=== PATIENT | female | born 1940 | race Caucasian/White ===

== ENCOUNTER 2016-07-21 12:48 | Emergency (ER) | payer MEDICARE, OTHER ==
[~2016-07-21] VITALS: Ht 165.1 cm; Wt 77.7 kg
[2016-07-21 12:49] VITALS: BP 121/72; PULSE 117; RESP 18; O2SAT 95
--- NOTE | 2016-07-21 12:55 | ED.REPORT ---
HPI-General Illness Date of Service July 21, 2016 ED Provider: Stewart Howard MD The patient is a 76 year old female w/ a hx of HTN who presents to the ED accompanied by her sent from Urgent Care due to possible pneumonia. On Saturday at 1000, she began to get chills and a fever of 101.7F. She took some Aspirin. Associated symptoms include headache, nausea and a very slight cough. She denies photosensitivity, vomiting, sore throat, abdominal pain, and dysuria. On the way to the ED today, while in the parking lot walking to the car from Urgent Care, her reports that the pt had a short syncopal episode. The pt went completely white, was caught by her , crumpled to the ground and lost consciousness for about 10 seconds. The pt remembers the episode. She is alert and awake at the ED and states she is extremely thirsty. Nursing Notes Stated Complaint: HEADACHE/SENT FROM Chief Complaint: General Complaint Nursing Notes Reviewed: Yes Allergies: Coded Allergies: No Known Allergies (Unverified , 07/21/16) Scheduled Azithromycin (Zithromax (Z-Anish)) 250 Mg Tablet 250 MG PO DIRECTED Take two tablets by mouth on day 1, then take one tablet daily on days 2 through 5. General Time Seen by MD: 12:53 Chief Complaint Fever Hx Obtained From: Patient Arrived By: Walk-in Sudden in Onset?: Yes Onset Occurred: 3 days ago Symptom Duration: Since onset Severity: Current: No pain currently Associated with: Reports: Cough, Headache, Nausea Recent Healthcare: Recent doctor visit Similar Sx Previous: Yes Past Medical History Past Medical History HTN Past Surgical History rotator cuff surgery Smoking History Unknown if Ever Smoker Social History Other Social History: Good social support, , Local resident Ambulatory Status Independent Review of Systems Full Review of Systems Constitutional: Reports: Chills, Fever Eyes: Denies: Photophobia Ears / Nose / Throat: Denies: Sore throat Respiratory: Reports: Prod cough, clear GI: Reports: Nausea, Denies: Abdominal pain, Vomiting Female: Denies: Dysuria Neurologic: Reports: Headache Complete sys rev & neg: except as marked. Physical Exam Vital Signs Vital Signs Date Time Temp Pulse Resp B/P Pulse Ox O2 Delivery O2 Flow Rate FiO2 07/21/16 14:47 39.3 100 16 131/59 95 Room Air 07/21/16 14:45 39.3 100 16 131/59 95 Room Air 07/21/16 13:58 39.5 104 13 134/68 93 Room Air 07/21/16 13:25 39.5 106 12 97/65 94 Room Air 07/21/16 12:49 38.5 117 18 121/72 95 Room Air Initial VS: Reviewed Cardiovascular: Regular rate & rhythm, Heart sounds normal, Intact distal pulses Abdomen / GI: Soft, Non-tender, No guarding, No rebound, No distention Back: No CVA tenderness Extremities: Vascular intact, Neuro intact, No swelling, No tenderness Skin: Warm, Dry General/Constitutional: Awake, Alert, Cooperative Head / Eyes: Normocephalic, PERRL, EOMI Neck: Atraumatic, Supple, No meningismus negative brudzinski sign negative kernigs sign Respiratory / Chest: No rhonchi, No wheezing, No retractions faint crackles left base Interpretation & Diagnostics Lab Results Interpretation Result Diagram: 07/21/16 1318 07/21/16 1318 Test 07/21/16 13:18 07/21/16 13:19 White Blood Count 7.9th/mm3 (3.8-10.1) Red Blood Count 4.21mil/mm3 (3.90-5.20) Hemoglobin 13.9g/dL (12.0-15.6) Hematocrit 40.6% (35.0-46.0) Mean Corpuscular Volume 96.4fL (81-100) Mean Corpuscular Hemoglobin 33.0pg (27.0-35.0) Mean Corpuscular Hemoglobin Concent 34.2% (32.0-37.0) Red Cell Distribution Width 12.9% (12.3-15.4) Platelet Count 196bil/L (150-400) Neutrophils (%) (Auto) 88.6% (40-74) Lymphocytes (%) (Auto) 4.9% (14-46) Monocytes (%) (Auto) 5.3% (4-12) Eosinophils (%) (Auto) 0.1% (0-5) Basophils (%) (Auto) 0.6% (0-3) Sodium Level 134mEq/L (134-144) Potassium Level 3.5mEq/L (3.5-5.2) Chloride Level 94mEq/L (97-108) Carbon Dioxide Level 23mmol/L (18-29) Blood Urea Nitrogen 15mg/dL (8-27) Creatinine 0.92mg/dL (0.57-1.00) Estimat Glomerular Filtration Rate 85mL/min (>59) Glucose Level 150mg/dL (60-99) Calcium Level 8.7mg/dL (8.5-10.1) Total Bilirubin 0.8mg/dL (0.0-1.2) Aspartate Amino Transf (AST/SGOT) 36U/L (0-50) Alanine Aminotransferase (ALT/SGPT) 27U/L (0-32) Alkaline Phosphatase 128U/L (25-165) Troponin T < 0.010ug/L (0.0-0.011) Total Protein 6.6g/dL (6.4-8.4) Albumin 3.5g/dL (3.4-5.0) Hold Riggs Top Tube Received (Received) ECG Interpretation ECG Interpretation: Q-wave inversions isolated to V1 no ST changes Time: 13:20 Interpreted by: ED physician Rhythm / Conduction: Tachycardia (rate 106) X-Ray Chest Interpretation Chest Xray Interpretation: IMPRESSION: Minimal left costophrenic angle blunting, suggestive of fluid. Dictated by: Nika Benavides M.D. on 07/21/2016 at 14:12 Approved by: Nika Benavides M.D. on 07/21/2016 at 14:12 View: Portable Interpretation / Wet Read by: Interpret - Radiologist Re-Eval/Medical Decision Med Decision/Clinical Course 76-year-old female otherwise healthy presenting with fever and cough. X-ray with questionable left lower lobe pneumonia. Her oxygen is mid 90s. Her labs are unremarkable. She did have a near syncopal event in the parking lot. She feels much better after IV fluids. Her vital signs are stable. Her troponins are negative. Her labs are unremarkable. Will be discharged home with return precautions. Counseled Regarding: Diagnosis, Lab results, Need for follow-up, When/why to return to ED Discharge & Departure Primary Impression: Pneumonia Pneumonia type: due to unspecified organism Laterality: unspecified laterality Lung location: unspecified part of lung Qualified Code: J18.9 - Pneumonia, unspecified organism Disposition: Home Discharge Condition All VS Reviewed: Yes Condition: Stable Additional Instructions: All of your x-rays and lab work were normal. There was a small amount of fluid in the base of your lung which could be indicative of early pneumonia. I am sending you home with an antibiotic for 5 days. Take Tylenol and Ibuprofen as needed for pain. Stay well hydrated, drink plenty of fluids, and get lots of rest. Follow up with your primary care physician on Saturday. Return to the Emergency Department for any new or worsening symptoms including loss of consciousness, chest pain, high fever, increased neck/back pain, confusion and difficulty breathing. I hope you feel better soon, enjoy the sunshine! Referrals: Alka Thomas MD (PCP) Scribe Attestation Portion of this note were transcribed by Darya Richey. I, Dr. Howard, personally performed the history, physical exam, and medical decision-making: I reviewed and confirmed the accuracy for the information in the transcribed note. Signed by: khoa Garcia, 07/21/16 1500 copies to: Alka Thomas MD, Ben M MD July 21, 2016 12:55 Darya Richey July 21, 2016 13:04
[2016-07-21] MEDS ORDERED: 0.9% Sodium Chloride 1,000 ML IV ONE (13:03)
[2016-07-21 13:22] LABS: BASOPHILS % (AUTO) 0.6 % (0-3); EOSINOPHILS % (AUTO) 0.1 % (0-5); MONOCYTES % (AUTO) 5.3 % (4-12); Mean Corpuscular Volume 96.4 fL (81-100); NEUTROPHILS % (AUTO) 88.6 % (40-74); Platelet Count 196 bil/L (150-400)
[2016-07-21 13:25] VITALS: BP 97/65; PULSE 106; RESP 12; O2SAT 94
[2016-07-21 13:58] VITALS: BP 134/68; PULSE 104; RESP 13; O2SAT 93
--- NOTE | 2016-07-21 14:14 | DRSVH ---
PROCEDURE: X-RAY CHEST ONE VIEW, PORTABLE ([id number]) INDICATIONS: dyspnea TECHNIQUE: One view of the chest was acquired. COMPARISON: None. FINDINGS: Surgical changes and devices: None. Lungs and pleura: There is very minimal blunting of the left costophrenic angle. Mediastinum: Mediastinal contours appear normal. Heart size is normal. Bones and chest wall: No suspicious bony lesions. Overlying soft tissues appear unremarkable. IMPRESSION: Minimal left costophrenic angle blunting, suggestive of fluid. Dictated by: Nika Benavides M.D. on 07/21/2016 at 14:12 Approved by: Nika Benavides M.D. on 07/21/2016 at 14:12
[2016-07-21] MEDS ORDERED: AZIT250T4 PO (14:21)
[2016-07-21 14:45] VITALS: BP 131/59; PULSE 100; RESP 16; O2SAT 95
[2016-07-21 14:47] VITALS: BP 131/59; PULSE 100; RESP 16; O2SAT 95
== END 2016-07-21 14:56 | disposition home or self-care (01) ==
LOC: SED 12:48
DX: J18.9 Pneumonia, unspecified organism (principal); R55 Syncope and collapse; I10 Essential (primary) hypertension
CPT/HCPCS: 36415; 71010; 80053; 84484; 85025; 93005; 96360; 99285; J7030

== ENCOUNTER 2016-10-24 08:35 | Day surgery (SDC) | payer MEDICARE, OTHER ==
[~2016-10-24] VITALS: Ht 165.1 cm; Wt 68.0 kg
[~2016-10-24 08:35] MED LIST: CHOL40003 PO; LEVO100T6 PO; LOSA25TA21 PO; Lactated Ringer's 1,000 ML IV ONE; MAG355OR31 PO; OMEP20CA11 PO; RANI150C4 PO; RED600CA2 PO; UBID10CA4 PO
[2016-10-24] MEDS ORDERED: Propofol 10 mg/mL 20 mL Inj ONE (08:36)
[2016-10-24] MEDS ORDERED: MULT-1073 PO (08:52)
[2016-10-24] MEDS ORDERED: ASCO-294 PO (08:52)
[2016-10-24] MEDS ORDERED: VIT1TABL83 PO (08:52)
[2016-10-24 09:00] VITALS: BP 133/73; PULSE 80; RESP 16; O2SAT 97
--- NOTE | 2016-10-24 09:24 | PCM.HPANE ---
Patient Data Surgeon Admitting Provider: Attending Provider:Brandan Cedeño MD Primary Care Physician:Alka Thomas MD Other Provider:Harriet [place] Anesthesia Reason for Visit Screening For Colon Cancer, Gerd Ht/WT & BMI Height (Feet): 5 Height (Inches): 5 Weight (Kilograms): 68.04 Body Mass Index 24.00 Allergies Coded Allergies: Sulfa (Sulfonamide Antibiotics) (Verified Adverse Reaction, Mild, DOESNT WORK, 10/23/16) codeine (Verified Adverse Reaction, Mild, NAUSEA, 10/23/16) Past Anesthesia History Anesthesia History: Denies:: Abnormal Airway, Anesthesia Reactions, Difficult Intubation, Fam Anesthesia Reaction, Fam Malignant Hypertherm, Malignant Hyperthermia Diabetes History Hx Diabetes?: No MRSA MRSA: No Medications Home Meds Incl Beta Juan Manuel: No Reported Medications Ascorbate Calcium (Vitamin C)500 Mg Tablet2,000 Mg PO DAILY 10/24/16 Vit B Comp/C/FA/Iron/Vit E (Vitamin B Complex Tablet)1 Each Tablet1 Each PO DAILY 10/24/16 Multivits-Min/FA/Lycopene/Lut (Centrum Silver Tablet)1 Each Tablet1 Each PO DAILY 10/24/16 Cholecalciferol (Vitamin D3) (Vitamin D3)4,000 Unit Capsule4,000 Unit PO DAILY 10/23/16 Red Yeast Rice 600 Mg Capsule1,200 Mg PO DAILY 10/23/16 Ranitidine 150 Mg Fisxetn546 Mg PO DAILY Ref 0 10/23/16 Omeprazole 20 Mg Capsule.dr20 Mg PO DAILY Ref 0 10/23/16 Losartan Potassium 25 Mg Lgumcz06 Mg PO BID 10/23/16 Levothyroxine 100 Mcg Xgdzax543 Mcg PO DAILY For Thyroid Replacement Ref 0 10/23/16 Ubidecarenone (Co Q-10)10 Mg Vumrugx04 Mg PO DAILY 10/23/16 Discontinued Reported Medications Mag Hydrox/Al Hydrox/Simeth (Antacid M Liquid)355 Ml Oral.susp10 Ml PO HS 10/23/16 Discontinued Scripts Azithromycin (Zithromax (Z-Anish))250 Mg Ngycsn748 Mg PO DIRECTED #6 TABLET Take two tablets by mouth on day 1, then take one tablet daily on days 2 through 5. Prov:Stewart Howard MD 07/21/16 History History of ENT Problems?: No HEENT History: Denies:: Abnormal Airway Difficult Intubation Dysphagia Hearing Problem Denture Type: None Teeth Condition: Within Normal Limits Hx of Heart Problems?: Yes Cardiovascular History: Positive for:: Hypertension Denies:: AICD Atrial Fibrillation Chest Pain Pacemaker Valvular Heart Disease Hx of Respiratory Problem?: Yes Respiratory History: Positive for:: Pneumonia (07/2016) Denies:: Asthma COPD Cough Hemoptysis Tuberculosis Hx Neurologic Problems?: No Neurological History: Denies:: CVA Hx of GI Problems?: Yes Hx of Problems?: No HX of Peritoneal Dialysis: No Female Hx: Denies:: Currently Hx Musculoskeletal Problems?: No Musculoskeletal History: Denies:: Fibromyalgia Joint Replacement Hx of Psycho/Social Problems?: No Psycho Social History: Denies:: Anxiety Hx Depression Hx Surgeries?: Yes (SHOULDER, TONSILS, BUNIONECTOMY) Hx Any Other Health Problems?: Yes Hx Diabetes: No Hx Alcohol Use: YesHx Substance Use: No Smoking Status: Unknown if Ever Smoker Stop/Bang Treated for Sleep Apnea?: Yes Do You Have a CPAP Machine?: Yes Risk Assessment Category Category 1A: Patient has history of documented sleep apnea, and HAS NOT received any narcotic, sedative or anesthesia administration during this stay. Category 1B: Patient has history of documented sleep apnea, and HAS received any narcotic , sedative or anesthesia administration during this stay Category 2: Patient has SUSPECTED Obstructive Sleep Apnea, and HAS received any narcotic , sedative or anesthesia administration during this stay. Category 3: Patient has SUSPECTED Obstructive Sleep Apnea and HAS NOT received narcotic, sedative or anesthesia administration during this stay. Category 4: Outpatient in Procedural Areas with known sleep apnea or who screen positive for High Risk via the STOP/BANG questionnaire. Exam Exam Vital Signs Vital Signs Date Time Temp Pulse Resp B/P Pulse Ox O2 Delivery O2 Flow Rate FiO2 10/24/16 09:00 80 16 133/73 97 Room Air General Appearance: Alert, Oriented X3, Cooperative, No Acute Distress HEENT/AIRWAY: MP 1, MP 2 Lungs: Normal Air Movement Heart: Regular Rate/Rhythm Meds/Labs/Diagnostics Admission Meds Current Medications Lactated Ringer's (Lr) 1,000 ml @ 10 mls/hr Q24H ONCE IV Last administered on 10/24/16t 09:12; Start 10/24/16 at 06:00; Stop 10/25/16 at 05:59 Plan Impression Patient chart reviewed, patient interviewed and anesthestic plan with risks, benefits, and alternatives discussed, and informed consent obtained. Atilio Ceja MD Oct 24, 2016 09:24
[2016-10-24 10:18] VITALS: BP 115/69; PULSE 68; RESP 16; O2SAT 97
[2016-10-24 10:28] VITALS: BP 117/66; PULSE 77; RESP 12; O2SAT 100
[2016-10-24 10:37] VITALS: BP 116/61; PULSE 71; RESP 14; O2SAT 100
--- NOTE | 2016-10-24 10:55 | ENDO ---
[address] [address] ENDOSCOPY PROCEDURE PATIENT: MALICK HANDY : 1940 MR#: [id number] ADMIT: 10/24/2016 JOB ID: [id number] DATE: 10/24/2016 PRIMARY PROVIDER: Alka Thomas MD PROCEDURE: Esophagogastroduodenoscopy with biopsy and a colonoscopy. INDICATIONS: A 76-year-old female with symptoms of hoarseness reporting for EGD evaluation. She also has a history of colon polyp returning for colon surveillance. EQUIPMENT: GIF-H180J and a PCF-H180AL. SEDATION: Monitored anesthesia as provided by Dr. Atilio Ceja. COMPLICATIONS: None identified. BOWEL PREPARATION: Fair, adequate exam. PROCEDURE INFO: After the risks and benefits were explained, written, and verbal informed consent was obtained. The patient was brought into the endoscopy suite and placed into the left lateral decubitus position. Sedation was achieved as above. The scope introduced into the mouth through the bite block, and advanced to the second portion of the duodenum. The scope was slowly withdrawn to carefully examine the mucosa for any defects or lesions. Retroflexed views were accomplished in the stomach. The stomach was decompressed. The scope removed the patient who tolerated the procedure well. The patient was then turned around. A digital rectal examination accomplished. Mild internal hemorrhoids noted. The scope was introduced into the rectum and advanced under direct visualization to the cecum as identified by the appendiceal orifice and ileocecal valve. The scope was slowly withdrawn to carefully examine the mucosa for any defects or lesions. Multiple direct views were made through the dentate line for exclusion of pathology. The colon was decompressed. The scope removed the patient who tolerated the procedure well. FINDINGS: 1. Duodenum: This appeared visually normal from the bulb through to the second portion. 2. Stomach: No outlet obstruction. No ulcers. No mass lesions. There were several scattered benign diminutive gastric polyps. One of the larger ones perhaps 6-7 mm was biopsied away for histopathologic analysis and for exclusion of H. pylori infection. Otherwise, retroflexed views of the LES were unremarkable. 3. Esophagus: The squamocolumnar junction correlated top of the gastric folds. The GEJ was at 36 cm from the incisors. No acute erosive changes. No strictures. No mass lesions. No esophageal pathology appreciated. Subtle sliding hiatal hernia noted. 4. Colon: No significant polyps, mass lesions, or inflammatory features identified throughout. ENDOSCOPIC DIAGNOSES: 1. Gastric polyps. 2. Sliding hiatal hernia. 3. Hemorrhoids. 4. Otherwise visually unremarkable endoscopy. RECOMMENDATIONS: 1. Await histopathology. 2. If Helicobacter is found, it will need to be eradicated with standard triple therapy. 3. If symptoms of hoarseness persist then I would recommend we proceed with 24 hour pH evaluation on current therapy. 4. Otherwise continue anti-reflux approach. 5. Repeat colonoscopy in five years.
--- NOTE | 2016-10-24 12:00 | PCM.ANEP1 ---
Post Anesthesia PACU Phase 1 Assessment Vital Signs Vital Signs Date Time Temp Pulse Resp B/P Pulse Ox O2 Delivery O2 Flow Rate FiO2 10/24/16 10:37 71 14 116/61 100 Room Air 10/24/16 10:28 77 12 117/66 100 Room Air 10/24/16 10:18 36.3 68 16 115/69 97 Room Air 10/24/16 09:00 80 16 133/73 97 Room Air Anesthetic Administered: GA Level of Alertness: Awake, talking Pain: No Nausea or Vomiting: No CV Function & Hydration Stable: Yes Airway Device: None Oxygen Delivery: Nasal Cannula Lungs: Normal Air Movement PACU Phase 2 Assessment Complications: No Follow up Care: N/A Patient Instructions Provided: N/A Atilio Ceja MD Oct 24, 2016 12:00
--- NOTE | 2016-10-29 16:04 | PATH ---
SURGICAL PATHOLOGY Attending Physician:Mildred Elias CASE STATUS: Signed Out PATIENT NAME: MALICK HANDY PID: [id number] : 1940 DATE COLLECTED:10/24/2016 19:01 SPECIMEN: Stomach, Polyp, Biopsy CLINICAL HISTORY: 1). GASTRIC POLYP - RULE OUT H PYLORI FINAL DIAGNOSIS: Gastric Polyp, Biopsy: Fundic gland polyp. Helicobacter organisms not identified. Negative for intestinal metaplasia, dysplasia or malignancy. ICD10: K31.7 GROSS DESCRIPTION: The specimen is received in one formalin filled container labeled with the patient's name, sublabeled "gastric polyp" and consists of 2 portions of tissue which aggregate to 0.4 x 0.2 x 0.2 CM. The specimen is entirely submitted in one cassette. 10/24/2016DC ICD-9 CODES: CPT CODES: 1: 95625 Electronically Signed Out Greg Orta MD, Ph.D. [facility] Pathology [facility] [address] [facility], [place] [address] Technical component performed at [facility], [facility] [address], [place], [address]
== END 2016-10-24 23:59 | disposition home or self-care (01) ==
LOC: END 08:35
PROVIDERS: ATTEND Internal Medicine Gastroenterology
DX: Z12.11 Encounter for screening for malignant neoplasm of colon (principal); Z86.010 Personal history of colon polyps; K64.9 Unspecified hemorrhoids; K44.9 Diaphragmatic hernia without obstruction or gangrene; K31.7 Polyp of stomach and duodenum; K21.9 Gastro-esophageal reflux disease without esophagitis; R49.0 Dysphonia; I10 Essential (primary) hypertension; E78.5 Hyperlipidemia, unspecified; E03.9 Hypothyroidism, unspecified; M85.80 Other specified disorders of bone density and structure, unspecified site; G47.33 Obstructive sleep apnea (adult) (pediatric)
CPT/HCPCS: 43239; G0105; J2704; J7120